=== PATIENT | male | born 1960 | race Two or more races ===

== ENCOUNTER 2022-04-07 22:26 | Emergency (ER) | payer OTHER ==
[~2022-04-07] VITALS: Ht 193 cm; Wt 84.1 kg
[2022-04-07 22:54] VITALS: BP 156/86
[2022-04-07] MEDS ORDERED: LIDOcaine 2% 10ml TOPICAL JELLY (Urojet) TP ONE (23:30)
[2022-04-08 00:05] LABS: CLARITY,URINE CLEAR (Clear); COLOR,URINE YELLOW (Yellow); GLUCOSE, URINE NEGATIVE (Neg); KETONES,URINE NEGATIVE (Neg); LEUKOCYTE ESTERASE ,URINE NEGATIVE (Neg); NITRITES, URINE NEGATIVE (Neg); OCCULT BLOOD,URINE NEGATIVE (Neg); PH,URINE 6.5 (4.8-8.0); PROTEIN,URINE NEGATIVE (Neg); UROBILINOGEN,URINE 0.2 E.U/dL (0.2-1.0)
[2022-04-08 00:10] LABS: UA COLLECTION TYPE NON-SPECIFIED
[2022-04-08] MEDS ORDERED: tamsulosin 0.4mg capsule PO ONE (00:35)
[2022-04-08] MEDS ORDERED: FLO0.4C PO (00:39)
[2022-04-08] MEDS ORDERED: CEPH250T PO (00:39)
== END 2022-04-08 01:39 | disposition home or self-care (01) ==
LOC: ER 22:27
DX: R33.9 Retention of urine, unspecified (principal); N40.0 Benign prostatic hyperplasia without lower urinary tract symptoms; R10.30 Lower abdominal pain, unspecified; Z79.899 Other long term (current) drug therapy
CPT/HCPCS: 51702; 81003; 99284; A4340; A4358; A5200